=== PATIENT | female | born 1940 | race American Indian/Alaskan Native ===

== ENCOUNTER 2018-03-22 07:48 | Day surgery (SDC) | payer MEDICARE ==
[2018-03-13 06:51] VITALS: BMI 33.0
[2018-03-22] MEDS ORDERED: Propofol 10 mg/ml Inj (20 ML) ONE (10:02)
[2018-03-22] MEDS ORDERED: Sodium Chloride 0.9% 1,000 ML IV SCH (10:45)
[2018-03-22 13:42] VITALS: BP 119/63; PULSE 67; RESP 18; TEMP 97.6; O2SAT 100
== END 2018-03-22 12:08 | disposition home or self-care (01) ==
LOC: ENDO 07:48
PROVIDERS: ATTEND Internal Medicine Gastroenterology
DX: K63.5 Polyp of colon (principal); K57.30 Diverticulosis of large intestine without perforation or abscess without bleeding; K64.8 Other hemorrhoids; D50.9 Iron deficiency anemia, unspecified; K59.00 Constipation, unspecified
CPT/HCPCS: 45385; 88305; J2001; J2704; J7040 ×2

== ENCOUNTER 2018-06-07 08:25 | Day surgery (SDC) | payer MEDICARE ==
[2018-03-13 06:51] VITALS: BMI 33.0
[2018-06-07] MEDS ORDERED: Propofol 10 mg/ml Inj (20 ML) ONE (09:45)
[2018-06-07] MEDS ORDERED: Sodium Chloride 0.9% 1,000 ML IV SCH (09:45)
[2018-06-07 11:21] VITALS: BP 135/77; PULSE 71; RESP 16; TEMP 97.4; O2SAT 99
== END 2018-06-07 12:21 | disposition home or self-care (01) ==
LOC: ENDO 08:25
PROVIDERS: ATTEND Internal Medicine Gastroenterology
DX: K29.50 Unspecified chronic gastritis without bleeding (principal); D50.9 Iron deficiency anemia, unspecified
CPT/HCPCS: 43239; 88305; 88342; J2001; J2704; J7030; J7040